=== PATIENT | male | born 2000 | race Caucasian/White ===

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

== ENCOUNTER 2022-12-15 18:31 | Emergency (ER) | payer OTHER, SELFPAY ==
[2022-12-15 19:34] VITALS: BP 129/78; PULSE 103; RESP 18; TEMP 36.9; O2SAT 97; BMI 27.5
--- NOTE | 2022-12-15 19:36 | ED.GENADULT ---
HPI - General Adult General Chief complaint: Back Pain/Injury Stated complaint: tailbone pain Time Seen by Provider: 12/15/22 22:36 History of Present Illness HPI narrative: Patient complaining of pain to his gluteal area. Symptom has been getting worse over last 3-4 days. There is no fever no chills. No history of similar symptoms in the past. No bowel urinary incontinence. There is no radiation down to the legs. Patient is from home. Related Data Previous Rx's Medication Instructions Recorded diphenhydramine HCl 25 mg capsule 25 mg PO Q6H PRN allergic reaction 07/02/20 (Allergy (diphenhydramine)) #20 caps prednisone 20 mg tablet 40 mg PO DAILY #10 tabs 07/02/20 acetaminophen 500 mg tablet 500 mg PO Q6H PRN pain or fever 11/16/20 (Tylenol Extra Strength) #20 tabs benzonatate 100 mg capsule 100 mg PO TID PRN cough #14 caps 11/16/20 (Tessalon Perles) amoxicillin 875 mg-potassium 1 tab PO BID 5 days #10 tabs 12/16/22 clavulanate 125 mg tablet ibuprofen 400 mg tablet 400 mg PO Q6H PRN pain #20 tabs 12/16/22 oxycodone 5 mg tablet 5 mg PO Q8H PRN pain #7 tabs 12/16/22 Allergies Allergy/AdvReac Type Severity Reaction Status Date / Time No Known Allergies Allergy Unverified 03/28/20 16:59 [No Known Allergies*] Review of Systems Review of Systems: Positive pain to the gluteal area Yes all other systems are reviewed and are negative [facility]LY [facility], [facility] Past Medical History Attestation statement: The following information was validated with the patient. Medical History Asthma No known health problems Social History Social History Alcohol intake: never Smoked in Last 30 Days: No Use of substances other than those prescribed or required for medical reasons: No Advance Directives: No Advance Directives Information Provided: No Physical Exam ED Vital Signs: Vital Signs - 24 hr 12/15/22 19:34 12/15/22 23:55 12/16/22 01:39 Temperature 98.4 F 98.2 F 98.2 F Pulse Rate 103 H 102 H 102 H Respiratory Rate 18 18 16 Blood Pressure 129/78 129/76 121/44 L Pulse Oximetry 97 100 100 Oxygen Delivery Method Room Air Room Air Room Air BMI result Body Mass Index 27.5 Appearance: Alert. Oriented X3. No acute distress. Eyes: Pupils equal, round and reactive to light. ENT: Pharynx normal. Neck: Normal inspection. Neck supple. No lymph nodes noted. No crepitus CVS: Normal heart rate and rhythm. Pulses normal. Normal S1 and S2 Respiratory: No respiratory distress. Breath sounds normal. No Wheezing. No rales Abdomen: Soft and nontender. No rigidity. No distention. good BS x4 Skin: Examination of the gluteal area showed around the coccyx in the gluteal fold there is a swelling tenderness and fluctuance noted. Extremities: No lower extremity edema. Neurovascular intact to all extremities. No Lacerations. No Rash Neuro: Oriented X 3. No motor deficit. No sensory deficit. Moving all extermities. No slurred speech Course Course Course Narrative: RME - 22 yo male presents to the ER for evaluation of non-traumatic pain in his low back, near his tailbone after lifting heavy things over the weeks. He reports it feels swollen and tender. No hx pilonidal cyst in the past. Limited exam in triage but the gluteal cleft is tender, no erythema or fluctance appreciated. Plan: exam and possible drainage in the ER Medications Administered Discontinued Medications Generic Name Dose Route Start Last Admin Trade Name Freq PRN Reason Stop Dose Admin Lidocaine HCl 10 ml 12/15/22 23:07 12/16/22 01:13 Lidocaine Hcl 1 % Mpf 5 Ml Vial SUBCUT 12/15/22 23:08 10 ml ONCE ONE Administration Oxycodone HCl 5 mg 12/16/22 01:06 12/16/22 01:13 Oxycodone Hcl Immed Release 5 Mg Tablet PO 12/16/22 01:07 5 mg ONCE ONE Administration Procedures Abscess I/D Site: other (Pilonidal) Local Anesthetic: lidocaine 1% Amount of anesthesia used (mL): 5 Technique: needle aspiration and incised with blade Amount of fluid expressed (mL): 5 Sent for culture/gram staining?: Yes Irrigation: Yes Packing used?: iodoform Medical Decision Making Medical Decision Making [facility] Narrative: Patient has symptoms consistent with having a pilonidal cyst. Over 4 cc of pus was drained. I&D was performed. Given the location will give patient antibiotics. Will have patient closely follow up on an outpatient basis. Pain medication given. Patient is in stable condition Differential Diagnosis Differential Diagnoses: The differential diagnosis associated with the presentation includes Abscess, back pain, trauma Discharge Plan Discharge Clinical Impression: Cyst, pilonidal, with abscess Patient Disposition: Home, Self-Care Instructions: Pilonidal Cyst (ED), Abscess (ED), Pilonidal Cyst Excision (DC) Prescriptions: New ibuprofen 400 mg tablet 400 mg PO Q6H PRN (Reason: pain) Qty: 20 0RF oxycodone 5 mg tablet 5 mg PO Q8H PRN (Reason: pain) Qty: 7 0RF Rx Instructions: Partial Fill upon patient request. amoxicillin-pot clavulanate 875-125 mg tablet 1 tab PO BID 5 Days Qty: 10 0RF No Action prednisone 20 mg tablet 40 mg PO DAILY Qty: 10 0RF diphenhydramine HCl [Allergy (diphenhydramine)] 25 mg capsule 25 mg PO Q6H PRN (Reason: allergic reaction) Qty: 20 0RF acetaminophen [Tylenol Extra Strength] 500 mg tablet 500 mg PO Q6H PRN (Reason: pain or fever) Qty: 20 0RF benzonatate [Tessalon Perles] 100 mg capsule 100 mg PO TID PRN (Reason: cough) Qty: 14 0RF Referrals: Leonila Montelongo MD [Emergency Provider] - 12/18/22 (For wound check and packing removal)
[2022-12-15 23:55] VITALS: BP 129/76; PULSE 102; RESP 18; TEMP 36.8; O2SAT 100
--- NOTE | 2022-12-15 23:56 | MHC.EDTECH ---
This tech assumed care of patient at 2300, Vitals taken and patient is awaiting a procedure to be done by .
--- NOTE | 2022-12-16 00:55 | PC.NURSE ---
RN to bedside to answer call her, pt remains prone in stretcher; this previously was to support optimal comfort however pt now prepared for I&D by provider. He reports pain has gotten progressively worse during his visit/stay and was requesting pain medication to assist while awaiting the I&D. RN discussed the pt's request with Montelongo and new orders for pain to be obtained; pt remains with bedside visitor present. RN had previously provided education to pt and bedside visitor regarding Abscess' including but not limited to process, treatment and potential follow up needed for frequent experiences.
[2022-12-16] MEDS: oxyCODONE HCl Immed Release 5 MG TABLET PO (01:13)
[2022-12-16] MEDS: Lidocaine HCl 1 % MPF 5 ML VIAL 10 ML SUBCUT (01:13)
[2022-12-16 01:39] VITALS: BP 121/44; PULSE 102; RESP 16; TEMP 36.8; O2SAT 100
--- NOTE | 2022-12-16 01:41 | MHC.EDTECH ---
Patient is resting comfortable at this time,awaiting for an I&D of an Abscess. Vitals were taken and this tech set up for the procedure awaiting provider at this time.
[2022-12-16] MEDS: Amoxicillin/Potassium Clav 875 MG TABLET PO (04:05)
== END 2022-12-16 04:11 | disposition home or self-care (01) ==
PROVIDERS: Emergency Provider Emergency Medicine Emergency Medical Services
DX: L05.01 Pilonidal cyst with abscess (principal)
CPT/HCPCS: 10080; 87070; 87205; 99284

== ENCOUNTER 2022-12-18 02:28 | Emergency (ER) | payer OTHER, SELFPAY ==
[2022-12-18 02:32] VITALS: BP 124/74; PULSE 116; RESP 16; TEMP 36.8; O2SAT 98; BMI 29.2
--- NOTE | 2022-12-18 03:16 | ED.WOUNDLAC ---
HPI - Wound/Laceration General Chief Complaint: Wound/Laceration Stated Complaint: ?Wound-follow up Time Seen by Provider: 12/18/22 03:02 Source: patient Mode of arrival: ambulatory Limitations: no limitations History of Present Illness HPI narrative: Patient comes to the emergency room complaining of drainage from the pilonidal cyst incision that was done approximately 48 hours ago. Patient states that the string is starting to come out. Patient is controlling pain with oxycodone which was prescribed from this facility. Patient states that he has no fever or chills, otherwise doing well Related Data Previous Rx's Medication Instructions Recorded diphenhydramine HCl 25 mg capsule 25 mg PO Q6H PRN allergic reaction 07/02/20 (Allergy (diphenhydramine)) #20 caps prednisone 20 mg tablet 40 mg PO DAILY #10 tabs 07/02/20 acetaminophen 500 mg tablet 500 mg PO Q6H PRN pain or fever 11/16/20 (Tylenol Extra Strength) #20 tabs benzonatate 100 mg capsule 100 mg PO TID PRN cough #14 caps 11/16/20 (Tessalon Perles) amoxicillin 875 mg-potassium 1 tab PO BID 5 days #10 tabs 12/16/22 clavulanate 125 mg tablet ibuprofen 400 mg tablet 400 mg PO Q6H PRN pain #20 tabs 12/16/22 oxycodone 5 mg tablet 5 mg PO Q8H PRN pain #7 tabs 12/16/22 Allergies Allergy/AdvReac Type Severity Reaction Status Date / Time No Known Allergies Allergy Unverified 03/28/20 16:59 [No Known Allergies*] Review of Systems Review of Systems: Constitutional : No Weight loss, No Fever, No Chills, No Night Sweats, No Fatigue, No Malaise ENT/Mouth : No Hearing loss, No Ear Pain, No Nasal Congestion, No Sinus Pain, No Hoarseness, No sore throat, No Rhinorrhea, No Swallowing Difficulty Eyes: No Eye Pain, No Swelling, No Redness, No Foreign Body, No Discharge, No Vision Changes Cardiovascular : No Chest Pain, No SOB, No Dyspnea on Exertion, No Orthopnea, No Edema, No Palpitations Respiratory : No Cough, No Sputum, No Wheezing, No Smoke Exposure, No Dyspnea Gastrointestinal : No Nausea, No Vomiting, No Diarrhea, No Constipation, No abdominal Pain, No Hematochezia, No Melena Genitourinary : no irregular bleeding, No Dysuria, No Urinary Frequency, No Hematuria, No Urinary Incontinence, No Urgency, No Flank Pain, No Urinary Flow Changes, No Hesitancy Musculoskeletal : No joint pain, No Myalgias, No Joint Swelling Skin : Pilonidal cyst incision draining Neuro : No Weakness, No Numbness, No Paresthesias, No Loss of Consciousness, No Dizziness, No Headache Psych : No Anxiety/Panic, No Depression, No SI/HI/AH/VH, No Social Issues, Heme/Lymph: No Bruising, No Bleeding,No Lymphadenopathy Endocrine : No Polyuria, No Polydipsia, No Temperature Intolerance [facility] Past Medical History Medical History Asthma No known health problems Social History Social History Alcohol intake: never Advance Directives: No Advance Directives Information Provided: Yes Physical Exam Vital Signs: Vital Signs: Last Vital Signs Temp 98.2 F 12/18/22 02:32 Pulse 116 H 12/18/22 02:32 Resp 16 12/18/22 02:32 BP 124/74 12/18/22 02:32 Pulse Ox 98 12/18/22 02:32 O2 Del Method Room Air 12/18/22 02:32 BMI result Body Mass Index 29.2 Const: Other: Appearance: Alert. Oriented X3. No acute distress. Eyes: Pupils equal, round and reactive to light. ENT: Pharynx normal. Neck: Normal inspection. Neck supple. No lymph nodes noted. No crepitus CVS: Normal heart rate and rhythm. Pulses normal. Normal S1 and S2 Respiratory: No respiratory distress. Breath sounds normal. No Wheezing. No rales Abdomen: Soft and nontender. No rigidity. No distention. Skin: Skin warm and dry. There is a 1-1/2 cm incision above the gluteal cleft, draining serosanguineous thick yellowish material Extremities: No lower extremity edema. No Lacerations. No Rash Neuro: Oriented X 3. No motor deficit. No sensory deficit. Moving all extremities. No slurred speech. CN 2 through 12 grossly intact Psych: calm, cooperative, normal affect Medical Decision Making Medical Decision Making MDM Narrative: -patient is still taking antibiotics -no cellulitis -there is still fair amount of drainage from the pilonidal cyst incision site, I discussed with the patient that the best course of action is to change the dressing and reinsert new packing, patient agrees with plan, he will return in 48 hours for packing removal Discharge Plan Discharge Clinical Impression: Wound check, abscess Patient Disposition: Home, Self-Care Instructions: Acute Wounds (ED) Additional Instructions: Please follow-up with your primary care physician tomorrow. If you have any worsening or new symptoms, please return to the emergency room or call 911 Prescriptions: No Action prednisone 20 mg tablet 40 mg PO DAILY Qty: 10 0RF diphenhydramine HCl [Allergy (diphenhydramine)] 25 mg capsule 25 mg PO Q6H PRN (Reason: allergic reaction) Qty: 20 0RF acetaminophen [Tylenol Extra Strength] 500 mg tablet 500 mg PO Q6H PRN (Reason: pain or fever) Qty: 20 0RF benzonatate [Tessalon Perles] 100 mg capsule 100 mg PO TID PRN (Reason: cough) Qty: 14 0RF ibuprofen 400 mg tablet 400 mg PO Q6H PRN (Reason: pain) Qty: 20 0RF oxycodone 5 mg tablet 5 mg PO Q8H PRN (Reason: pain) Qty: 7 0RF Rx Instructions: Partial Fill upon patient request. amoxicillin-pot clavulanate 875-125 mg tablet 1 tab PO BID 5 Days Qty: 10 0RF
--- NOTE | 2022-12-18 03:27 | PC.NURSE ---
Pt a&o, no sob or chest pain, provider into assess wound and replaced packing, Reviewed discharge instructions with pt, pt verbalized understanding. No sign of distress.
== END 2022-12-18 03:33 | disposition home or self-care (01) ==
PROVIDERS: Emergency Provider Emergency Medicine
DX: Z48.00 Encounter for change or removal of nonsurgical wound dressing (principal)
CPT/HCPCS: 99282; 99284

== ENCOUNTER 2022-12-22 12:26 | Emergency (ER) | payer OTHER, SELFPAY ==
[2022-12-22 13:07] VITALS: BP 127/64; PULSE 98; RESP 18; TEMP 36.4; O2SAT 99; BMI 28.3
--- NOTE | 2022-12-22 13:41 | ED_ITS ---
HPI - Wound/Laceration General Chief Complaint: Wound/Laceration Stated Complaint: Wound Recheck Time Seen by Provider: 12/22/22 13:21 Source: patient Mode of arrival: ambulatory Limitations: no limitations History of Present Illness HPI narrative: this is a 22-year-old male presenting for a wound check, patient reports that he is having draining from pilonidal cyst incision site, he reports he had a pilonidal cyst incision and drainage done approximately 7 days ago. patient reports that packing was placed and it fell out. Patient is controlling pain with oxycodone which was prescribed from this facility.? Patient states that he has no fever , chills, nausea, vomiting, abdominal pain, chest pain, shortness of breath. Patient still on augmentin Related Data Previous Rx's Medication Instructions Recorded diphenhydramine HCl 25 mg capsule 25 mg PO Q6H PRN allergic reaction 07/02/20 (Allergy (diphenhydramine)) #20 caps prednisone 20 mg tablet 40 mg PO DAILY #10 tabs 07/02/20 acetaminophen 500 mg tablet 500 mg PO Q6H PRN pain or fever 11/16/20 (Tylenol Extra Strength) #20 tabs benzonatate 100 mg capsule 100 mg PO TID PRN cough #14 caps 11/16/20 (Tessalon Perles) amoxicillin 875 mg-potassium 1 tab PO BID 5 days #10 tabs 12/16/22 clavulanate 125 mg tablet ibuprofen 400 mg tablet 400 mg PO Q6H PRN pain #20 tabs 12/16/22 oxycodone 5 mg tablet 5 mg PO Q8H PRN pain #7 tabs 12/16/22 Allergies Allergy/AdvReac Type Severity Reaction Status Date / Time No Known Allergies Allergy Unverified 03/28/20 16:59 [No Known Allergies*] Review of Systems Review of Systems: Constitutional : No Weight loss, No Fever, No Chills, No Fatigue, No Malaise ENT/Mouth : No sore throat, No Rhinorrhea Eyes: No Eye Pain, No Swelling, No Redness Cardiovascular : No Chest Pain, No SOB, No Dyspnea on Exertion, No Orthopnea, No Edema, No Palpitations Respiratory : No Cough, No Sputum, No Wheezing Gastrointestinal : No Nausea, No Vomiting, No Diarrhea, No Constipation, No abdominal Pain, No Hematochezia, No Melena Genitourinary : No Dysuria, No Urinary Frequency, No Hematuria, Musculoskeletal : No joint pain, No Myalgias, No Joint Swelling Skin : No Skin Lesions, No rash, + pilonidal cyst Neuro : No Weakness, No Numbness, No Dizziness, No Headache Psych : No Anxiety/Panic, No Depression All other systems reviewed and are negative Yes all other systems are reviewed and are negative [facility] Past Medical History Attestation statement: The following information was validated with the patient. Source: old records reviewed and nursing notes reviewed Medical History Asthma No known health problems Social History Social History Alcohol intake: never Advance Directives: No Physical Exam Vital Signs: Vital Signs: Last Vital Signs Temp 97.6 F 12/22/22 13:07 Pulse 98 12/22/22 13:07 Resp 18 12/22/22 13:07 BP 127/64 12/22/22 13:07 Pulse Ox 99 12/22/22 13:07 O2 Del Method Room Air 12/22/22 13:07 BMI result Body Mass Index 28.3 vss Appearance: Alert.? Oriented X3.? No acute distress.? Head: Normocephalic, atraumatic, no step-offs or deformities Eyes: Pupils equal, round and reactive to light.? ENT: Pharynx normal.? Neck: Normal inspection.? Neck supple.? CVS: Normal heart rate and rhythm.? Pulses normal.? Respiratory: No respiratory distress.? Breath sounds normal.? Abdomen: Soft and nontender.? Skin: Skin warm and dry.? Normal skin color.? Normal skin turgor.?+ 1 cm incision above the gluteal cleft, draining serosanguineous thick yellow purulence w/ some overlying errythema Extremities: No lower extremity edema.? No calf ttp. 5/5 strength to bilateral upper and lower extremities Back: No midline tenderness, no C-spine tenderness, full range of motion, no CVA tenderness bilaterally Neuro: Oriented X 3.? No motor deficit.? No sensory deficit. CN 2-12 intact Medical Decision Making Medical Decision Making MDM Narrative: 22-year-old male presents for incision and drainage wound check for pilonidal cyst physical exam significant for 1 cm incision above the gluteal cleft, draining serosanguineous thick yellow purulence w/ some overlying errythema likely still draining pilonidal cyst, I do not suspect worsening infection. No signs of sepsis or necrotizing infection. Unlikely osteo. At this time I did discuss with patient he should follow up with General surgery as this appears to be a recurrent issue. Encourage from to continue taking antibiotics. Differential Diagnosis Differential Diagnoses: The differential diagnosis associated with the presentation includes likely still draining pilonidal cyst, I do not suspect worsening infection. No signs of sepsis or necrotizing infection. Unlikely osteo. At this time I did discuss with patient he should follow up with General surgery as this appears to be a recurrent issue. Encourage from to continue taking antibiotics. Admission/Observation Consideration of admission/observation: Escalation of care including admission/observation considered Unlikely Core Measures AMI core measures followed: Yes Measure exclusions: not indicated Discharge Plan Discharge Clinical Impression: Visit for wound check Patient Disposition: Home, Self-Care Instructions: Warm Compress or Soak (ED) Additional Instructions: Take your medications as prescribed. If you were prescribed antibiotics today, it is important that you take your medication to their entirety, do not skip any doses, do not finish them early. Follow-up with your primary care provider this week. Call General Surgery today. Return to the emergency department with new or worsening symptoms. Such as fevers, chills, chest pain, shortness of breath, nausea, vomiting, dizziness, headache, vision changes, lethargy In case of emergency call 911 continue taking your antibiotics. Apply warm compresses to the area. Prescriptions: No Action prednisone 20 mg tablet 40 mg PO DAILY Qty: 10 0RF diphenhydramine HCl [Allergy (diphenhydramine)] 25 mg capsule 25 mg PO Q6H PRN (Reason: allergic reaction) Qty: 20 0RF acetaminophen [Tylenol Extra Strength] 500 mg tablet 500 mg PO Q6H PRN (Reason: pain or fever) Qty: 20 0RF benzonatate [Tessalon Perles] 100 mg capsule 100 mg PO TID PRN (Reason: cough) Qty: 14 0RF ibuprofen 400 mg tablet 400 mg PO Q6H PRN (Reason: pain) Qty: 20 0RF oxycodone 5 mg tablet 5 mg PO Q8H PRN (Reason: pain) Qty: 7 0RF Rx Instructions: Partial Fill upon patient request. amoxicillin-pot clavulanate 875-125 mg tablet 1 tab PO BID 5 Days Qty: 10 0RF Referrals: [facility] [place] General Surgeons [Provider Group] - 1 day Physician,None [Primary Care Provider] - 2 days Stand Alone Forms: Work/School Release
== END 2022-12-22 14:05 | disposition home or self-care (01) ==
PROVIDERS: Emergency Provider Emergency Medicine
DX: Z48.00 Encounter for change or removal of nonsurgical wound dressing (principal)
CPT/HCPCS: 99282